=== PATIENT | male | born 1935 | race Caucasian/White ===

== ENCOUNTER 2023-01-17 04:40 | Inpatient (IN) | payer OTHER, SELFPAY ==
[2023-01-17] VITALS (12 sets, daily range): BP systolic 104–153; BP diastolic 53–74; PULSE 62–107; RESP 18–24; TEMP 36.4–36.7; O2SAT 92–100; BMI 30.4
--- NOTE | 2023-01-17 04:50 | XRR_ITS ---
PROCEDURE INFORMATION: Exam: XR Chest Exam date and time: 01/17/2023 4:56 AM Age: 87 years old Clinical indication: Shortness of breath; Additional info: SOB TECHNIQUE: Imaging protocol: Radiologic exam of the chest. 1image(s) are provided. Views: 1 view. COMPARISON: CT angio abd aorta runof [id number] 10/27/2016 9:15 AM lung bases. No previous chest radiograph is currently available. FINDINGS: Lungs: There is some patchy atelectatic consolidation demonstrated with some air bronchograms on the right as well as minimal at the left lung base. There is some lucency suggested of the right midlung zone. There are some interventional clips about the left hilum. Pleural spaces: There is some costophrenic angle blunting on the left. No pneumothorax is appreciated. There is a large amount of pleural fluid demonstrated on the right. Heart/Mediastinum: The cardiomediastinal silhouette is upper normal in size.This can be seen with central averaging as well as young enlargement.No cardiac decompensation is appreciated. Diaphragm: The right hemidiaphragm is obscured. Bones/joints: Osseous alignment is maintained.No interval displaced fracture or dislocation is appreciated.There is slightly decreased bone mineralization overall. There are some chronic appearing rib deformities present. There are postsurgical or interventional type rib changes on the left. Soft tissues: No radiopaque foreign body or diffuse subcutaneous emphysema is appreciated. Other findings: No other significant interval changes are appreciated. XR/XR chest 1V portable [id number] IMPRESSION: There is a large amount of pleural fluid on the right with some associated atelectatic consolidation and could be seen with multifocal inflammation. There does appear to be some lucency which could represent processes including pneumatocele or necrosis type related change of the midlung zone. Dedicated CT chest is recommended.
[2023-01-17 05:07] LABS: Basophils # 0.1 10^3/uL (0.0-0.1); Basophils % 0.4 %; Hematocrit 36.7 % (42.0-52.0); Hemoglobin 10.8 g/dL (11.7-16.6); Lymphocytes # 1.3 10^3/uL (0.8-4.8); Lymphocytes % 4.6 %; Mean Corpuscular HGB Conc 29.4 g/dL (30.0-36.0); Mean Corpuscular Hemoglobin 24.2 pg (28.0-34.0); Mean Corpuscular Volume 82.1 fl (80-94); Mean Platelet Volume 9.5 fL (7.4-10.4); Monocytes # 1.4 10^3/uL (0.2-0.9); Neutrophils # 25.24 10^3/uL (1.8-7.7); Neutrophils % 89.4 %; Nucleated Red Blood Cells % 0 %; Platelet Count 702 10^3/cmm (130-400); Red Blood Count 4.47 10^6/uL (4.1-5.3); Red Cell Distribution Width 15.7 % (12.1-15.1); White Blood Count 28.3 10^3/uL (4.0-10.0)
[2023-01-17 05:08] LABS: ABG PCO2 40.5 mmHg (35-45); ABG PH Result 7.47 (7.35-7.45); Arterial Blood Gas Hematocrit 31.9 % (42-52); Base Excess ABG 5.4 mmol/L (-2.0-2.0); Blood Gas Allen Test Pos; Blood Gas Sample Type Arterial; Carboxyhemoglobin 1.7 %THgb (0.4-20.1); HCO3 ABG 29.5 mmol/L (22-26); HGB O2 Sat 88.5 % (95-100); Methemoglobin 0.1 % (0.4-1.5); PO2 ABG 55.4 mmHg (80.0-100.0); Total Hemoglobin 10.4 g/dL (14-18)
[2023-01-17] MEDS: FUROsemide 10 mg/mL SDV 10mL 80 MG IVP (05:11)
[2023-01-17 05:12] LABS: Blood Gas Sample Site Radial, right; Oxygen Device NC
--- NOTE | 2023-01-17 05:13 | ECG_ITS ---
[facility] Test Date: 2023-01-17 Pat Name: Timothy Sanders Department: Room: Gender: Male Outside Production Inspector: : 1935 Requested By: Darin Lala Order Number: [id number] Belkys MD: Max Muhammad M.D. Measurements Intervals [place] Rate: 99 P: 32 HI: 163 QRS: -41 QRSD: 120 T: 51 QT: 338 QTc: 435 Interpretive Statements SINUS RHYTHM WITH OCCASIONAL SUPRAVENTRICULAR PREMATURE COMPLEXES LEFT AXIS DEVIATION [QRS AXIS < -30] POSSIBLE RIGHT VENTRICULAR CONDUCTION DELAY [RSR (QR) IN V1/V2] No previous ECG available for comparison Electronically Signed On 01-17-2023 7:48:51 CDT by Max Muhammad M.D. [id number]
[2023-01-17 05:18] LABS: Alanine Aminotransferase 22 U/L (0-41); Anion Gap 15.1 (5-19); Aspartate Amino Transferase 12 U/L (0-40); Carbon Dioxide 28 mmol/L (22-29); Creatinine Clr Calc Pharmacy 73.8367; Globulin 3.6 g/dL (1.3-4.6); Osmolality Calculated 292 mOsm/kg (285-295); Potassium 4.1 mmol/L (3.5-5.1); Total Bilirubin 0.3 mg/dL (0.15-1.2)
[2023-01-17 05:39] LABS: Lactic Sepsis W/Reflex 1.7 mmol/L (0.5-2.2)
--- NOTE | 2023-01-17 05:56 | ED_ITS ---
HPI - SOB/Dyspnea General: Chief Complaint: Shortness of Breath/Dyspnea Stated Complaint: SOB Time Seen by Provider: 01/17/23 04:43 History of Present Illness: HPI Narrative: 87-year-old gentleman presents from a [facility] this morning. He is supposedly a hospice patient although it is somewhat unclear as to his advanced directives or his hospice status. He is a recent on arrival to [facility]. We do not have prior record of him here. He presents with shortness of breath, and some mental status changes. Evidently his oxygen saturation was quite low this morning which concerned the [facility] staff. He denies increased cough. There is some leg swelling. We do not know if this is chronic or not. Saturations improved with oxygenation with nonrebreather mask. MD elicited complaint: shortness of breath Pertinent past history: other Onset (ago): hour(s) Context: recent illness Timing: constant and progressively worsening Severity: severe Exacerbating factors: lying flat Known history of: congestive heart failure Associated symptoms: Reports chest congestion and orthopnea; Deny abdominal pain, chest pain, cough, dizziness, fever(s), hemoptysis or vomiting Review of Systems Const: Denies: fever(s) Card: Reports: orthopnea; Denies: chest pain Resp: Reports: chest congestion; Denies: hemoptysis GI: Denies: abdominal pain or vomiting Skin/Breast: Denies: rash Neuro: Denies: dizziness Physical Exam Const: GENERAL APPEARANCE: cooperative, ill appearing and frail appearing HENMT: COMMON NORMALS: normocephalic, atraumatic and Normal external nose present HEAD & SCALP: normocephalic and atraumatic NOSE: Normal external nose present and Normal nares present Eye: COMMON NORMALS: Equal, round and reactive pupils present and EOMs intact bilaterally PUPIL: Yes Equal, round and reactive pupils present Neck/C-Spine: GENERAL: Yes trachea midline Chest: CHEST: Yes Symmetrical chest wall rise Resp: EFFORT & INSPECTION: Yes respiratory distress and Yes labored AUSCULTATION: rales, rhonchi and diminished lung sounds Cardio: COMMON NORMALS: regular rate and regular rhythm RATE: regular rate RHYTHM: regular rhythm GI: COMMON NORMALS: Soft to palpation and non-tender INSPECTION: No abdominal distension PALPATION: Yes Soft to palpation Extremity: GENERAL: Yes edema (3+) Neuro: MESSI COMA SCALE: document GCS findings Messi coma scale eye opening: Spontaneous [place] coma scale verbal response: Confused [place] coma scale motor response: Obey commands [place] coma scale total score: 14 Psych: COMMON NORMALS: cooperative Course Vital Signs: Vital signs: Vital Signs Temperature 98.1 F 01/17/23 15:07 Pulse Rate 67 01/17/23 15:07 Respiratory Rate 20 H 01/17/23 15:07 Blood Pressure 139/66 01/17/23 15:07 Pulse Oximetry 96 01/17/23 15:07 Oxygen Delivery Me thod Nasal Cannula 01/17/23 15:07 Oxygen Flow Rate 5 01/17/23 11:48 MDM - SOB/Dyspnea Medical Decision Making 87-year-old gentleman comes in from [facility], complaint of shortness of breath. His pulse ox was quite low. For rest, oxygenation was at 7 L, with a pulse ox of 91 to 92%. Currently saturations are 99% with a heart rate of 92, b lood pressure 121/58. His white blood cell count is 28.3. We have no prior record of white blood cell counts to compare. His hemoglobin is 11. His platelet count is 702. His lactic acid is 1.7. ABG shows a pH of 7.47 with a PCO2 of 40.5 and a PO2 of 55.4 that was on 5 L by oxy mask. BMP and BNP are pending. Chest x-ray shows right lower and right upper lobe opacities with evidence of pulmonary edema/effusion. Left lung is relatively clear. The patient has received vancomycin and Zosyn. He is also received 80 mg of IV Lasix. Boggs was placed. This is for accurate input output. He will be admitted for hypoxic respiratory failure, pneumonia, which may be postobstructive from a mass, and pulmonary edema. Spoke with hospitalist. She agrees to admit. Lab Data 01/17/23 04:48 01/17/23 04:48 Labs/Radiology: Radiology Impressions Chest X-Ray 01/17/23 04:50 IMPRESSION: There is a large amount of pleural fluid on the right with some associated atelectatic consolidation and could be seen with multifocal inflammation. There does appear to be some lucency which could represent processes including pneumatocele or necrosis type related change of the midlung zone. Dedicated CT chest is recommended. Chest CT 01/17/23 06:30 IMPRESSION: There is a large amount of pleural fluid demonstrated on the right with some multifocal consolidation and volume loss. This demonstrates some lower overall attenuation as well as parenchymal type necrosis with right upper lobe predominance as well as associated bronchovascular thickening with airway narrowing and abnormal lymph node enlargement. The appearance is most concerning for neoplasm underlying within the parenchyma of the hilar level. Some superimposed inflammation could also present in this fashion. COMMENTS: Consistent with the [place] [employer]'s Incidental Findings Committee white paper (J Am Gustavo Radiol 2018): Any incidental renal lesion less than 1 cm or classified as too small to characterize, or any incidental cystic renal lesion characterized as simple-appearing, is likely benign. No follow-up imaging is recommended for these lesions per consensus recommendations based on imaging criteria. Laboratory Results WBC 28.3 10^3/uL (4.0-10.0) H 01/17/23 04:48 RBC 4.47 10^6/uL (4.1-5.3) 01/17/23 04:48 Hgb 10.8 g/dL (11.7-16.6) L 01/17/23 04:48 Hct 36.7 % (42.0-52.0) L 01/17/23 04:48 MCV 82.1 fl (80-94) 01/17/23 04:48 MCH 24.2 pg (28.0-34.0) L 01/17/23 04:48 MCHC 29.4 g/dL (30.0-36.0) L 01/17/23 04:48 RDW 15.7 % (12.1-15.1) H 01/17/23 04:48 Plt Count 702 10^3/cmm (130-400) H 01/17/23 04:48 MPV 9.5 fL (7.4-10.4) 01/17/23 04:48 Neut % (Auto) 89.4 % 01/17/23 04:48 Lymph % (Auto) 4.6 % 01/17/23 04:48 Keith % (Auto) 5.0 % 01/17/23 04:48 Eos % (Auto) 0.0 % 01/17/23 04:48 Baso % (Auto) 0.4 % 01/17/23 04:48 Neut # (Auto) 25.24 10^3/uL (1.8-7.7) H 01/17/23 04:48 Lymph # (Auto) 1.3 10^3/uL (0.8-4.8) 01/17/23 04:48 Keith # (Auto) 1.4 10^3/uL (0.2-0.9) H 01/17/23 04:48 Eos # (Auto) 0.0 10^3/uL (0.0-0.8) 01/17/23 04:48 Baso # (Auto) 0.1 10^3/uL (0.0-0.1) 01/17/23 04:48 Nucleated RBC % (auto) 0 % 01/17/23 04:48 Nucleated RBCs # 0.0 /100WBC 01/17/23 04:48 Specimen Type Arterial 01/17/23 05:00 Sample Site Radial, right 01/17/23 05:00 ABG pH 7.47 (7.35-7.45) H 01/17/23 05:00 ABG pCO2 40.5 mmHg (35-45) 01/17/23 05:00 ABG pO2 55.4 mmHg (80.0-100.0) L 01/17/23 05:00 ABG HCO3 29.5 mmol/L (22-26) H 01/17/23 05:00 ABG Base Excess 5.4 mmol/L (-2.0-2.0) H 01/17/23 05:00 Nas Test Pos 01/17/23 05:00 Hematocrit 31.9 % (42-52) L 01/17/23 05:00 Hgb O2 Saturation 88.5 % (95-100) L 01/17/23 05:00 Carboxyhemoglobin 1.7 %THgb (0.4-20.1) 01/17/23 05:00 Methemoglobin 0.1 % (0.4-1.5) L 01/17/23 05:00 Total Hemoglobin 10.4 g/dL (14-18) L 01/17/23 05:00 O2 Delivery Device Nc 01/17/23 05:00 O2 Liters/Min 5.0 % 01/17/23 05:00 Information Management Manager ID [email or web address] 01/17/23 05:00 Sodium 134 mmol/L (136-145) L 01/17/23 04:48 Potassium 4.1 mmol/L (3.5-5.1) 01/17/23 04:48 Chloride 95 mmol/L (98-107) L 01/17/23 04:48 Carbon Dioxide 28 mmol/L (22-29) 01/17/23 04:48 Anion Gap 15.1 (5-19) 01/17/23 04:48 BUN 31 mg/dL (8-23) H 01/17/23 04:48 Creatinine 0.8 mg/dL (0.7-1.2) 01/17/23 04:48 GFR Calculation Not Reportable 01/17/23 04:48 Glucose 226 mg/dL (65-115) H 01/17/23 04:48 Calculated Osmolality 292 mOsm/kg (285-295) 01/17/23 04:48 Lactic Acid 1.7 mmol/L (0.5-2.2) 01/17/23 04:48 Calcium 11.7 mg/dL (8.5-10.5) H 01/17/23 04:48 Total Bilirubin 0.3 mg/dL (0.15-1.2) 01/17/23 04:48 AST 12 U/L (0-40) 01/17/23 04:48 ALT 22 U/L (0-41) 01/17/23 04:48 Alkaline Phosphatase 133 U/L (40-130) H 01/17/23 04:48 NT-Pro-B Natriuret Pep 5290 pg/mL (0-450) H 01/17/23 04:48 Total Protein 6.5 g/dL (6.6-8.7) L 01/17/23 04:48 Albumin 2.9 g/dL (3.5-5.2) L 01/17/23 04:48 Globulin 3.6 g/dL (1.3-4.6) 01/17/23 04:48 Discharge Plan Discharge Patient Disposition: Admitted As Inpatient Admit Provider: Heidi Card Clinical Impression: Pneumonia, Respiratory failure, Pulmonary edema Condition: Stable Coding Level of Care Code ED Police Magistrate for Vern Salinas
[2023-01-17 06:11] LABS: Chloride 95 mmol/L (98-107); NT Pro B Type Natriuretic Pept 5290 pg/mL (0-450); Sodium 134 mmol/L (136-145)
[2023-01-17 06:12] LABS: Albumin Level 2.9 g/dL (3.5-5.2); Alkaline Phosphatase 133 U/L (40-130); Blood Urea Nitrogen 31 mg/dL (8-23); Calcium 11.7 mg/dL (8.5-10.5); Glucose 226 mg/dL (65-115); Total Protein 6.5 g/dL (6.6-8.7)
--- NOTE | 2023-01-17 06:30 | CTR_ITS ---
PROCEDURE INFORMATION: Exam: CT Chest With Contrast; Diagnostic Exam date and time: 01/17/2023 6:48 AM Age: 87 years old Clinical indication: Shortness of breath; Additional info: Hypoxic resp failure. Right infiltrate/effusion vs mass TECHNIQUE: Imaging protocol: Diagnostic computed tomography of the chest with contrast. 260image(s) are provided. Radiation optimization: All CT scans at this facility use at least one of these dose optimization techniques: automated exposure control; mA and/or kV adjustment per patient size (includes targeted exams where dose is matched to clinical indication); or iterative reconstruction. Contrast material: OMNI 350; Contrast volume: 100 ml; Contrast route: INTRAVENOUS (IV); Other technique: Axial images are available with sagittal and coronal reconstruction views. Automated dose exposure control is utilized. The DLP is 424.04. REPORTING DATA: Count of CT and Cardiac NM exams in prior 12 months: This patient has received 0 known CTs and 0 known cardiac nuclear medicine studies in the 12 months prior to the current study. COMPARISON: CR (CHEST, ) 01/17/2023 4:[address] chest is currently available. CT runoff report of 2017. RADIATION DOSE METRICS: Total DLP (mGy-cm): 424.04 FINDINGS: Trachea: The central airways appear grossly patent although there are areas of mucous or secretion related change for example at the mid tracheal level as well as of the vasiliy and bronchus intermedius predominantly. There is also subsegmental airway narrowing overall right more so than left and could represent some processes including aspiration as well as chronic at least partial obstruction for example of the right upper lobe predominantly subsegments. Lungs: There are postsurgical bronchial changes on the left. There is reticulonodular overall opacification of the aerated portions of the right lung with otherwise consolidative volume loss with some air bronchograms as well as lower overall attenuation with some air-fluid levels indicative of necrosis right upper lobe predominantly with greatest dimensions of approximately 6.3 x 6.5 cm. There are smaller areas adjacent. There is some questionable subpleural extension or nodularity along the posterior pleural margin medially on the right. No left lobar type consolidation is currently appreciated. Pleural spaces: There is a large amount of right pleural fluid demonstrated. No pneumothorax is appreciated. The pleural fluid density overall measures approximately 14 Hounsfield units. There is also serous type fluid of the area of necrosis. This is borderline at approximally 19 Hounsfield units. Heart: There is some trace pericardial and recess fluid likely physiologic. Lymph nodes: There are enlarged hilar and mediastinal lymph nodes present along with some obscuration of the right hilar margins. For example 1 of the larger areas of conglomeration of the precarinal space measures approximately 3.5 x 2.6 cm along with overall bronchovascular thickening. Vasculature: There are advanced atherosclerotic changes of the aorta with included portions somewhat similar overall. No interval saccular aneurysmal dilatation is currently appreciated. There are dense aortic root and valvular type calcifications as well as some coronary arterial calcifications. No central pulmonary thromboembolism is appreciated. Subsegmental evaluation is limited. There is some anatomic narrowing of the left innominate vein great vessel margins as well as some compression from the lymph nodes. Liver: There appears to be some hepatic steatosis overall. There appears to be some possible stone type appearance about the periportal and gallbladder fossa level although incompletely included. Adrenal glands: There is some adrenal hypertrophy present relatively similar although may be slightly increased. Kidneys and ureters: There are similar fluid dense simple appearing renal cystic changes of the superior poles although incompletely included overall. There is some perinephric stranding left slightly more so than right although incompletely included overall for evaluation. Intraperitoneal space: There is a similar otherwise interval appearance of the included intraperitoneal space, upper abdominal structures. Bones/joints: Osseous alignment is maintained.No interval displaced fracture or dislocation is appreciated.There is slightly decreased bone mineralization overall. There is some bridging flowing osteophytosis overall throughout the thoracic spine with anterior predominance and some partial disc space fusion related changes. There are postsurgical appearing changes of the left hemithorax including the ribs. Consider if there is history of previous neoplasm and/or resection. There are some chronic appearing rib deformities. Soft tissues: No radiopaque foreign body or subcutaneous emphysema is appreciated. Other findings: There is some motion artifact present. No other significant interval changes are appreciated. CT/CT chest w con* [id number] IMPRESSION: There is a large amount of pleural fluid demonstrated on the right with some multifocal consolidation and volume loss. This demonstrates some lower overall attenuation as well as parenchymal type necrosis with right upper lobe predominance as well as associated bronchovascular thickening with airway narrowing and abnormal lymph node enlargement. The appearance is most concerning for neoplasm underlying within the parenchyma of the hilar level. Some superimposed inflammation could also present in this fashion. COMMENTS: Consistent with the [employer] [place] [employer]'s Incidental Findings Committee white paper (J Am Gustavo Radiol 2018): Any incidental renal lesion less than 1 cm or classified as too small to characterize, or any incidental cystic renal lesion characterized as simple-appearing, is likely benign. No follow-up imaging is recommended for these lesions per consensus recommendations based on imaging criteria.
--- NOTE | 2023-01-17 06:54 | PM.HP ---
Providers/Chief Complaint Admitting Physician: Heidi Card MD Chief Complaint: SOB History of Present Illness Timothy Sanders is a 87 year old male with history of CHF COPD on supplemental oxygen at 3 L nasal cannula type 2 diabetes mellitus obstructive sleep apnea vitamin D deficiency posttraumatic stress disorder GERD hypertension bipolar disorder left lung cancer status postsurgery was brought in this morning by the EMS from [facility] for complaint of hypoxia. On arrival in ER he was saturating 90% on 7 L. He is currently on hospice care and DNR as per the [facility] records. This is his first admission and there is no previous records of him. On further questioning he complained of shortness of breath and feeling sick but seems to be confused hence no reliable information can be obtained at this moment. Daughter Gabbi Sandy [phone] has the power of state's attorney His pulse ox was quite low.? For rest, oxygenation was at 7 L, with a pulse ox of 91 to 92%.? Currently saturations are 99% with a heart rate of 92, blood pressure 121/58.? His white blood cell count is 28.3.? His hemoglobin is 11.? His platelet count is 702.? His lactic acid is 1.7.? ABG shows a pH of 7.47 with a PCO2 of 40.5 and a PO2 of 55.4 that was on 5 L by oxy mask.? BNP 5290? Chest x-ray shows right lower and right upper lobe opacities with evidence of pulmonary edema/effusion.? Left lung is relatively clear. Review of Systems Const: Denies: fever(s) Card: Reports: orthopnea; Denies: chest pain Resp: Reports: chest congestion; Denies: hemoptysis GI: Denies: abdominal pain or vomiting Skin/Breast: Denies: rash Neuro: Denies: dizziness Medications/Allergies Allergies Allergy/AdvReac Type Severity Reaction Status Date / Time lithium Allergy Unknown Verified 01/17/23 05:14 valproic acid Allergy Unknown Verified 01/17/23 05:14 Vitals/I&O/Wt Last Vital Signs Temp 97.8 F 01/17/23 04:41 Pulse 97 01/17/23 05:43 Resp 22 H 01/17/23 05:43 BP 104/53 01/17/23 05:43 Pulse Ox 95 01/17/23 05:43 O2 Del Method High Flow Nasal Cannula 01/17/23 05:43 O2 Flow Rate 7 01/17/23 05:21 Weight last 48 hrs Weight 90.718 kg Physical Exam Narrative: Awake but confused pleasant oriented to place and person moderate built not in acute distress Chest bilateral decreased air entry at the bases no rhonchi or wheezing Cardiovascular S1-S2 normal systolic murmur present Abdomen soft nondistended nontender normal bowel sounds Extremities bilateral lower extremity 2+ edema Urinary Catheter Management: Boggs: Cath Placed During This Visit: yes Urinary Catheter Date of Insertion: 01/17/23 Urinary Catheter Time of Insertion: 05:28 Data 01/17/23 04:48 01/17/23 04:48 Micro: Microbiology 01/17/23 05:06 Blood Culture - Preliminary Blood SPECIMEN COLLECTED 01/17/23 05:16 Blood Culture - Preliminary Blood SPECIMEN COLLECTED EKG 1: EKG computer-generated impression: SINUS RHYTHM WITH OCCASIONAL SUPRAVENTRICULAR PREMATURE COMPLEXES LEFT AXIS DEVIATION? [QRS AXIS < -30] POSSIBLE RIGHT VENTRICULAR CONDUCTION DELAY? [RSR (QR) IN V1/V2] A&P Assessment and plan (1) Respiratory failure: (2) Pneumonia: (3) Pulmonary edema: (4) Pleural effusion associated with pulmonary infection: Plan Hypoxic respiratory failure likely secondary to pneumonia associated with bilateral pleural effusions admit to ICU Will give IV vancomycin 1 g every 12 hours IV Zosyn 3.375 every 8 hours IV fluids normal saline at 75 mL/h Continue supplemental oxygen at 7 L/min CT chest follow-up ID consult Cardiovascular hemodynamically stable will monitor in ICU [facility] Resume [facility] medications He is hospice and DNR for now Cardiac diet DVT prophylaxis with subcu heparin Attestations Medical Necessity Statement*: Critical illness with hypoxic respiratory failure need ICU monitoring and stabilization Time Spent in Patient Care: 45min Coding Level of Care Code Critical Care >/= 30 minutes Diagnoses Respiratory failure J96.90 Pneumonia J18.9 Pulmonary edema J81.1 Pleural effusion associated with pulmonary infection J18.9; J91.8 Time Spent (min) 45
[2023-01-17] MEDS: iohexol 350 mg/mL 500 mL Btl (per mL) IV (06:58)
--- NOTE | 2023-01-17 07:57 | PC.PHAR ---
pt is from [facility] [phone]-medications entered are from pts mar and tar
[2023-01-17] MEDS: sodium chloride 0.9% 1,000 ML 75 ML IV (08:46)
[2023-01-17] MEDS: piperacillin-tazobactam 3.375 GM in sodium chloride 0.9% (plus) 50 ML IV ×2 (08:52→14:52)
[2023-01-17] MEDS: enoxaparin 30 mg/0.3 mL Syringe SUBCUT (09:00)
[2023-01-17] MEDS: vancomycin 1,000 MG in sodium chloride 0.9% 250 ML 250 MG IV (09:04)
[2023-01-17] MEDS: ipratropium-albuterol 3 mL Neb INHALATION (11:48)
[2023-01-17] MEDS: LORazepam 2 mg/mL INJ 1 mL 1 MG IVP (14:53)
--- NOTE | 2023-01-17 18:46 | PC.NURSE ---
Pt became very irritated and pulled both IVs out. Dr. Singh said if he pulls out again he will change to oral ATB.
[2023-01-17] MEDS: morphine 10 mg/0.5 mL oral liq UD 15 MG PO (20:05)
--- NOTE | 2023-01-17 21:28 | PM.MISC ---
Miscellaneous Note Note: Patient seen and evaluated. Not completely oriented. Frail appearing. Spoke with daltoner on phone. She wants to ensure he is comfortable and she endorsed palliative aitvan and morphine for comfort. Patient is confused. Ripped out IV. Rotating to oral comfort meds and abx.
[2023-01-18] VITALS (10 sets, daily range): BP systolic 118–175; BP diastolic 61–78; PULSE 89–124; RESP 18–26; TEMP 36.4–36.9; O2SAT 68–91
[2023-01-18] MEDS: morphine 10 mg/0.5 mL oral liq UD 15 MG PO ×6 (01:24→19:55)
[2023-01-18] MEDS: LORazepam 2 mg/mL oral liquid (mL) 1 MG PO ×3 (01:54→17:54)
[2023-01-18] MEDS: LORazepam 2 mg/mL INJ 1 mL IVP ×3 (03:59→15:08)
[2023-01-18] MEDS: glycopyrrolate 0.2 mg/mL SDV 2 mL IV ×4 (04:03→19:10)
[2023-01-18] MEDS: morphine 4 mg/mL SDV 1 mL IVP ×5 (09:05→10:43)
--- NOTE | 2023-01-18 12:39 | PC.NURSE ---
Approximately 911, notified dtr Gabbi of change in condition. Dtr said good-bye and I love you over the phone via speaker. No response from pt.
--- NOTE | 2023-01-18 12:48 | PM.PN ---
Subjective Subjective: Patient has been already agitated Trying to pull his IV line and Boggs catheter Currently on 3 L OxyMask Abnormal breathing pattern noted Vitals/I&O/Wt Last Vital Signs Temp 97.5 F L 01/18/23 07:19 Pulse 94 01/18/23 08:53 Resp 24 H 01/18/23 10:43 BP 147/74 01/18/23 07:19 Pulse Ox 87 L 01/18/23 08:53 O2 Del Method Oxymask 01/18/23 08:53 O2 Flow Rate 10 01/18/23 08:53 01/17/23 01/18/23 01/18/23 22:59 06:59 14:59 Intake Total 888.542 / 1668.542 0 / 1668.542 Output Total 1100 / 3100 Balance 888.542 / -331.458 -1100 / -1431.458 Weight last 48 hrs Weight 90.718 kg Physical Exam Narrative: Abdominal breathing Currently on 3 L OxyMask Under the effect of sedatives Abdomen soft Patient looks dehydrated Limited neuro exam S1, S2 Urinary Catheter Management: Boggs: Cath Placed During This Visit: yes Reason for Continuing Indwelling Catheter: Hospice/Comfort/Palliative Care Urinary Catheter Date of Insertion: 01/17/23 Urinary Catheter Time of Insertion: 05:28 Data 01/17/23 04:48 01/17/23 04:48 Micro: Microbiology 01/17/23 05:06 Blood Culture - Preliminary Blood NEGATIVE TO DATE 01/17/23 05:16 Blood Culture - Preliminary Blood NEGATIVE TO DATE A&P Assessment and plan (1) Pleural effusion associated with pulmonary infection: (2) Pneumonia: (3) Pulmonary edema: Plan Patient was on hospice at a different assisted Currently has been treated for pneumonia Currently on 3 L with OxyMask Continue antibiotics DuoNeb every 4 as needed For agitation I would use Haldol and Ativan on as-needed basis Patient is DNR/DNI: Plan to send him back to assisted with hospice He is with [facility] We will touch base with his daughter Attestations Medical Necessity Statement*: Guarded prognosis Diagnoses Pleural effusion associated with pulmonary infection J18.9; J91.8 Pneumonia J18.9 Pulmonary edema J81.1
--- NOTE | 2023-01-18 18:47 | PC.NURSE ---
Lorazepam 1 mg waste witnessed by Urszula CASTANEDA, 1 mg given for comfort measures.
--- NOTE | 2023-01-18 22:00 | PC.NURSE ---
[facility] notified by this nurse at 2039 of patient . Awaiting call back from [facility] to release body to home
--- NOTE | 2023-01-18 22:00 | PC.NURSE ---
pt at 20:24 and was verified by this nurse and charge nurse. Upon passing family member, Manuela was immediately notified. supervisor cereal notified by charge nurse and [facility] notified by charge nurse. Dr Card notified of pt as well. All lines removed and post mortem care provided.
--- NOTE | 2023-01-18 22:59 | PC.NURSE ---
Pt placed in [facility] at [phone]
--- NOTE | 2023-01-18 23:27 | PC.NURSE ---
[employer] equipment [employer] supervisor transported Patient to the [facility] at 22:50.
--- NOTE | 2023-01-19 05:36 | W.PM.EVENTAC ---
Event Note Event Note: Nurse called him to inform that Mr. Schilling at 20: 24. Family and home informed Event Notes Attestations Time Spent in Patient Care: 3-minute
--- NOTE | 2023-01-19 06:19 | PC.NURSE ---
[facility]S Coordinator Ameena called at this time and stated that patient is not a candidate for donation. Body may be released to home at this time. [employer] notified.
--- NOTE | 2023-01-19 13:53 | PM.DDS ---
Discharge Providers DDS Date of Admission: 01/17/23 06:24 Date Summary Completed: 01/19/23 Attending Provider at Admission: Heidi Card MD Time of : 20:24 Attending Provider at Discharge: Courtney Navarro MD DS Diagnoses Hospital Diagnoses (1) Pleural effusion associated with pulmonary infection: (2) Pneumonia: (3) Pulmonary edema: Reason for Visit Reason for Visit SOB Summary Date and Time of Date of : 01/18/23 Time of : 20:24 Summary Summary: 87-year-old male with history of lung cancer who was on hospice was sent to the hospital for management of hypoxic respiratory failure patient was very agitated, he was requiring oxygen through [employer], he was not oriented at all he was being treated for pneumonia with IV antibiotics, bilateral pleural effusion concern for postobstructive pneumonia, family did not want to pursue any aggressive intervention, patient was on hospice with [facility] Additional Data Confirmation of as documented by pronouncing clinician: pupils fixed and dilated Additional persons at bedside: nursing staff Attending/PCP notified?: I am attending Autopsy requested?: No Advance directives?: No Hospice patient?: Yes Discharge Plan Discharge Patient Disposition: Condition: Stable Probable Cause of Probable cause of : Cardiac arrest DS Attestations Time Spent in /Discharge Care*: less than 30 min Quality - AMI: AMI present?: No Quality - Stroke: CVA present?: No Quality - VTE: VTE present?: No Coding Level of Care Code Acute Code for g Fwd Diagnoses Pleural effusion associated with pulmonary infection J18.9; J91.8 Pneumonia J18.9 Pulmonary edema J81.1
== END 2023-01-18 22:50 | disposition expired | DRG 193 ==
LOC: ER 06:23 → MEDSURG 06:34
PROVIDERS: Admitting Provider Internal Medicine; Emergency Provider Emergency Medicine; Visit Provider Internal Medicine
DX: J18.9 Pneumonia, unspecified organism (principal); J96.91 Respiratory failure, unspecified with hypoxia; J91.8 Pleural effusion in other conditions classified elsewhere; J81.1 Chronic pulmonary edema; J44.0 Chronic obstructive pulmonary disease with (acute) lower respiratory infection; Z99.81 Dependence on supplemental oxygen; E11.9 Type 2 diabetes mellitus without complications; G47.33 Obstructive sleep apnea (adult) (pediatric); E55.9 Vitamin D deficiency, unspecified; F43.10 Post-traumatic stress disorder, unspecified; K21.9 Gastro-esophageal reflux disease without esophagitis; I10 Essential (primary) hypertension; F31.9 Bipolar disorder, unspecified; Z66 Do not resuscitate; R45.1 Restlessness and agitation; Z85.118 Personal history of other malignant neoplasm of bronchus and lung
CPT/HCPCS: 12345; 36415; 36600; 51702; 71045; 71260; 80053; 82805; 83605; 83880; 85025; 87040; 93005; 94640; 94664; 96372; 96374; 99285; 99291; J1650; J1940; J2060; J2270; J2543; J3370; J3490; J7030; J7050; Q9967